=== PATIENT | female | born 1985 ===

== ENCOUNTER 2022-06-06 09:24 | Outpatient (CLI) | payer OTHER | END 2022-06-06 09:40 | disposition home or self-care (01) | LOC: SONOGRAMA 09:24 | DX: N93.9 Abnormal uterine and vaginal bleeding, unspecified (principal); N84.0 Polyp of corpus uteri ==

== ENCOUNTER 2024-12-20 10:05 | Outpatient (CLI) | payer OTHER | END 2024-12-20 10:13 | disposition home or self-care (01) | LOC: RAD 10:05 | PROVIDERS: ATTEND Physical Medicine & Rehabilitation | DX: M54.2 Cervicalgia (principal); M25.512 Pain in left shoulder; M25.532 Pain in left wrist ==

== ENCOUNTER 2025-04-04 10:05 | Outpatient (CLI) | payer OTHER | END 2025-04-04 10:07 | disposition home or self-care (01) | LOC: SONOGRAMA 10:05 | PROVIDERS: ATTEND Physical Medicine & Rehabilitation | DX: M77.11 Lateral epicondylitis, right elbow (principal) ==